=== PATIENT | female | born 1965 | race Caucasian/White ===

== ENCOUNTER 2017-06-25 17:56 | Inpatient (IN) | payer MEDICAID ==
[~2017-06-25] VITALS: Ht 160 cm; Wt 86.4 kg
[~2017-06-25 17:56] MED LIST: ALBU6.7H3 IH; ARIP5TAB4 PO; GABA-532 PO; HYDR-565 PO; MSC30T PO; OXYC-658 PO; SUMA50TA PO
[2017-06-25 18:44] LABS: INR 1.1 INR; PROTHROMBIN TIME 11.4 SECONDS (9.0-12.0)
[2017-06-25 18:46] LABS: ALANINE AMINOTRANSFERASE 55 U/L (12-78); ALBUMIN/GLOBULIN RATIO 1.1 (1.1-1.5); ALKALINE PHOSPHATASE 78 IU/L (46-116); ANION GAP 15 (8-16); ASPARTATE AMINO TRANSFERASE 53 U/L (10-37); BILIRUBIN,TOTAL 1.3 MG/DL (0.1-1.0); BLOOD UREA NITROGEN 26 MG/DL (7-18); BUN/CREATININE RATIO 24.5 (6.6-38.0); CALCIUM 8.9 MG/DL (8.5-10.1); CHLORIDE 96 MMOL/L (99-107); CREATININE 1.06 MG/DL (0.40-0.90); GLUCOSE 104 MG/DL (70-104); POTASSIUM 4.1 MMOL/L (3.5-5.1); SODIUM 135 MMOL/L (135-145); TOTAL CARBON DIOXIDE 24.5 MMOL/L (24-32); TOTAL PROTEIN 7.8 G/DL (6.4-8.2); eGFR 55 ML/MIN
[2017-06-25 18:50] LABS: BASOPHILS % (AUTO) 0.1 % (0-1); EOSINOPHILS # (AUTO) 0.5 X10'3 (0-0.9); EOSINOPHILS % (AUTO) 2.2 % (0-6); HEMATOCRIT 47.4 % (35.0-45.0); HEMOGLOBIN 16.5 g/dl (12.0-16.0); LYMPHOCYTES # (AUTO) 0.7 X10'3 (1.1-4.8); LYMPHOCYTES % (AUTO) 3.4 % (21-51); MEAN CORPUSCULAR HEMOGLOBIN 31.5 PG (27.0-31.0); MEAN CORPUSCULAR HGB CONC 34.8 % (33.0-36.5); MEAN CORPUSCULAR VOLUME 90.5 FL (78-98); MEAN PLATELET VOLUME 7.9 FL (7.4-10.4); MONOCYTES # (AUTO) 0.6 X10'3 (0-0.9); MONOCYTES % (AUTO) 2.8 % (2-12); NEUTROPHILS # (AUTO) 19.6 X10'3 (1.8-7.7); NEUTROPHILS % (AUTO) 91.5 % (42-75); PLATELET COUNT 201 X10'3 (140-440); RED BLOOD COUNT 5.23 X10'6 (4.20-5.60); RED CELL DISTRIBUTION WIDTH 14.2 % (11.5-14.5); WHITE BLOOD COUNT 21.4 X10'3 (4.5-11.0)
[2017-06-25 20:48] LABS: CLARITY,URINE CLEAR (Clear); COLOR,URINE YELLOW (Yellow); GLUCOSE, URINE NEGATIVE (Neg); KETONES,URINE TRACE mg/dl (Neg); LEUKOCYTE ESTERASE ,URINE NEGATIVE (Neg); NITRITES, URINE NEGATIVE (Neg); OCCULT BLOOD,URINE NEGATIVE (Neg); PH,URINE 5.5 (4.8-8.0); PROTEIN,URINE NEGATIVE (Neg); UROBILINOGEN,URINE 0.2 E.U/dL (0.2-1.0)
[2017-06-25 20:51] LABS: UA COLLECTION TYPE CLN CATCH MIDSTREAM
[2017-06-25] MEDS ORDERED: morphine 4 MG/ML inj SYRINge IV ONE ×4 (21:10→23:20)
[2017-06-25] MEDS ORDERED: ondansetron/PF 4mg/2ml inj IV ONE ×2 (21:10→23:20)
[2017-06-25] MEDS ORDERED: normal saline 1000ML IV soln IVB ONE (21:10)
[2017-06-25] MEDS ORDERED: piperacillin/tazo 3.375gm/50ml 50 ML IV ONE (21:10)
[2017-06-25] MEDS ORDERED: iohexol 300mg/ml 100ml inj. ONE (21:19)
[2017-06-25 21:31] LABS: URINE HCG NEGATIVE (NEG)
[2017-06-25 21:46] LABS: MAGNESIUM 1.3 MG/DL (1.5-2.4); TROPONIN I < 0.04 NG/ML (0.0-0.05)
[2017-06-25 22:02] LABS: LIPASE 3634 U/L (73-393)
[2017-06-25 22:09] LABS: URINE AMPHETAMINE SCREEN NEGATIVE (Neg); URINE BARBITUATE SCREEN NEGATIVE (Neg); URINE BENZODIAZEPINES SCREEN NEGATIVE (Neg); URINE CANNABINOID SCREEN NEGATIVE (Neg); URINE COCAINE SCREEN NEGATIVE (Neg); URINE METHADONE SCREEN NEGATIVE (Neg); URINE OPIATE SCREEN POSITIVE (Neg); URINE PHENCYCLIDINE SCREEN NEGATIVE (Neg)
[2017-06-25] MEDS ORDERED: ringers solution, lactated 1000ml IV soln IV ONE (23:20)
[2017-06-25 23:45] LABS: LACTATE DEHYDROGENASE 413 U/L (81-234)
[2017-06-26] MEDS ORDERED: HYDROmorphone 1 mg/ml syringe IV ONE ×2 (00:05→02:25)
[2017-06-26] MEDS ORDERED: morphine 4 MG/ML inj SYRINge IV ONE (00:05)
[2017-06-26] MEDS ORDERED: HYDROmorphone inj. 0.5 MG/0.5 ML DISP.SYRIN ONE ×2 (00:21→02:53)
[2017-06-26] MEDS ORDERED: magnesium 2GM in 50ml NS 50 ML IV PRN (00:30)
[2017-06-26] MEDS ORDERED: bisacodyl 10mg suppository rectal RC PRN (00:30)
[2017-06-26] MEDS ORDERED: magnesium 4gm in 100ml NS 100 ML IV PRN (00:30)
[2017-06-26] MEDS ORDERED: mag hydrox/Alum hydrox/simeth 30ml oral suspension PO PRN (00:30)
[2017-06-26] MEDS ORDERED: potassium Cl 40MEQ/NS 500ml 500 ML IV PRN ×2 (00:30)
[2017-06-26] MEDS ORDERED: HYDROmorphone inj. 0.5 MG/0.5 ML DISP.SYRIN IV PRN (00:30)
[2017-06-26] MEDS ORDERED: naloxone 0.4 mg/ml inj IV PRN (02:25)
[2017-06-26] MEDS ORDERED: CADD PCA waste documentation MC PRN (02:25)
[2017-06-26] MEDS: normal saline 1000ml 1,000 ML IV SCH ×7 (02:30→18:00)
[2017-06-26 03:00] VITALS: BP 145/72
[2017-06-26] MEDS ORDERED: piperacillin/tazo 3.375gm/50ml 50 ML IV ONE (03:21)
[2017-06-26] MEDS: HYDROmorphone/NS 1 mg/ml CADD 50 ML IV SCH ×11 (03:23→23:00)
[2017-06-26] MEDS: piperacillin/tazo 3.375gm/50ml 50 ML IV SCH ×4 (03:28→20:32)
[2017-06-26 06:27] LABS: ALANINE AMINOTRANSFERASE 37 U/L (12-78); ALBUMIN 3.2 G/DL (3.4-5.0); ALBUMIN/GLOBULIN RATIO 0.9 (1.1-1.5); ALKALINE PHOSPHATASE 66 IU/L (46-116); ANION GAP 11 (8-16); ASPARTATE AMINO TRANSFERASE 34 U/L (10-37); BILIRUBIN,TOTAL 1.6 MG/DL (0.1-1.0); BLOOD UREA NITROGEN 19 MG/DL (7-18); BUN/CREATININE RATIO 19.2 (6.6-38.0); CALCIUM 8.1 MG/DL (8.5-10.1); CHLORIDE 101 MMOL/L (99-107); CHOL/HDL RATIO 4.4 (0.00-4.99); CHOLESTEROL 92 MG/DL (0-200); CREATININE 0.99 MG/DL (0.40-0.90); GLUCOSE 105 MG/DL (70-104); HDL CHOLESTEROL 21 MG/DL (35-60); LDL CHOLESTEROL 29 MG/DL (50-100); POTASSIUM 3.6 MMOL/L (3.5-5.1); SODIUM 138 MMOL/L (135-145); TOTAL PROTEIN 6.7 G/DL (6.4-8.2); eGFR 59 ML/MIN
[2017-06-26 06:28] LABS: TRIGLYCERIDES 281 MG/DL (20-135)
[2017-06-26 06:32] LABS: LIPASE 2210 U/L (73-393)
[2017-06-26 06:45] LABS: BASOPHILS % (AUTO) 0 % (0-1); EOSINOPHILS # (AUTO) 0.2 X10'3 (0-0.9); EOSINOPHILS % (AUTO) 1.5 % (0-6); HEMATOCRIT 40.6 % (35.0-45.0); HEMOGLOBIN 14.1 g/dl (12.0-16.0); LYMPHOCYTES # (AUTO) 0.6 X10'3 (1.1-4.8); LYMPHOCYTES % (AUTO) 4.2 % (21-51); MEAN CORPUSCULAR HEMOGLOBIN 31.7 PG (27.0-31.0); MEAN CORPUSCULAR HGB CONC 34.9 % (33.0-36.5); MEAN PLATELET VOLUME 7.8 FL (7.4-10.4); MONOCYTES # (AUTO) 0.4 X10'3 (0-0.9); MONOCYTES % (AUTO) 2.4 % (2-12); NEUTROPHILS # (AUTO) 13.8 X10'3 (1.8-7.7); NEUTROPHILS % (AUTO) 91.9 % (42-75); PLATELET COUNT 128 X10'3 (140-440); RED BLOOD COUNT 4.46 X10'6 (4.20-5.60); RED CELL DISTRIBUTION WIDTH 13.6 % (11.5-14.5)
[2017-06-26 07:21] VITALS: BP 129/72
[2017-06-26] MEDS: K and/or MAG REPLACEMENT MC SCH (08:00)
[2017-06-26] MEDS: enoxaparin 40mg/0.4ml syringe SQ SCH (08:00)
[2017-06-26] MEDS: ondansetron/PF 4mg/2ml inj IV PRN ×2 (08:16→17:18)
[2017-06-26 13:44] VITALS: BP 112/71
[2017-06-26 18:40] VITALS: BP 125/79
[2017-06-27] VITALS: BP 116/83
[2017-06-27] MEDS: HYDROmorphone/NS 1 mg/ml CADD 50 ML IV SCH ×12 (01:00→23:00)
[2017-06-27] MEDS: piperacillin/tazo 3.375gm/50ml 50 ML IV SCH ×4 (01:27→20:21)
[2017-06-27 06:05] LABS: BASOPHILS % (AUTO) 0.2 % (0-1); EOSINOPHILS # (AUTO) 0.1 X10'3 (0-0.9); EOSINOPHILS % (AUTO) 1.3 % (0-6); HEMATOCRIT 36.9 % (35.0-45.0); LYMPHOCYTES # (AUTO) 0.8 X10'3 (1.1-4.8); LYMPHOCYTES % (AUTO) 8.2 % (21-51); MEAN CORPUSCULAR HEMOGLOBIN 31.9 PG (27.0-31.0); MEAN CORPUSCULAR HGB CONC 35.2 % (33.0-36.5); MEAN CORPUSCULAR VOLUME 90.5 FL (78-98); MEAN PLATELET VOLUME 7.8 FL (7.4-10.4); MONOCYTES # (AUTO) 0.4 X10'3 (0-0.9); MONOCYTES % (AUTO) 3.8 % (2-12); NEUTROPHILS # (AUTO) 8.5 X10'3 (1.8-7.7); NEUTROPHILS % (AUTO) 86.5 % (42-75); PLATELET COUNT 105 X10'3 (140-440); RED BLOOD COUNT 4.08 X10'6 (4.20-5.60); RED CELL DISTRIBUTION WIDTH 13.6 % (11.5-14.5); WHITE BLOOD COUNT 9.9 X10'3 (4.5-11.0)
[2017-06-27 06:23] LABS: ALANINE AMINOTRANSFERASE 27 U/L (12-78); ALBUMIN 2.9 G/DL (3.4-5.0); ALBUMIN/GLOBULIN RATIO 0.7 (1.1-1.5); ALKALINE PHOSPHATASE 66 IU/L (46-116); ANION GAP 8 (8-16); ASPARTATE AMINO TRANSFERASE 24 U/L (10-37); BILIRUBIN,TOTAL 0.8 MG/DL (0.1-1.0); BLOOD UREA NITROGEN 12 MG/DL (7-18); BUN/CREATININE RATIO 11.2 (6.6-38.0); CALCIUM 8.7 MG/DL (8.5-10.1); CHLORIDE 103 MMOL/L (99-107); CREATININE 1.07 MG/DL (0.40-0.90); GLUCOSE 85 MG/DL (70-104); LIPASE 671 U/L (73-393); MAGNESIUM 1.6 MG/DL (1.5-2.4); POTASSIUM 3.6 MMOL/L (3.5-5.1); SODIUM 139 MMOL/L (135-145); TOTAL CARBON DIOXIDE 27.8 MMOL/L (24-32); TOTAL PROTEIN 6.8 G/DL (6.4-8.2); eGFR 54 ML/MIN
[2017-06-27 07:38] VITALS: BP 134/86
[2017-06-27] MEDS: K and/or MAG REPLACEMENT MC SCH (08:00)
[2017-06-27] MEDS: enoxaparin 40mg/0.4ml syringe SQ SCH (08:00)
[2017-06-27] MEDS: normal saline 1000ml 1,000 ML IV SCH ×2 (10:26→18:30)
[2017-06-27] MEDS ORDERED: magnesium hydroxide 30ml (MOM) UD suspension PO PRN (12:55)
[2017-06-27] MEDS: docusate sod 100mg capsule PO SCH ×2 (13:16→20:21)
[2017-06-27] MEDS: aripiprazole 5mg tablet PO SCH (13:52)
[2017-06-27 18:40] VITALS: BP 131/86
[2017-06-27] MEDS: gabapentin 300mg capsule PO SCH (20:21)
[2017-06-28] VITALS: BP 149/97
[2017-06-28] MEDS: HYDROmorphone/NS 1 mg/ml CADD 50 ML IV SCH ×6 (01:00→11:00)
[2017-06-28] MEDS: piperacillin/tazo 3.375gm/50ml 50 ML IV SCH ×2 (01:42→07:11)
[2017-06-28] MEDS: normal saline 1000ml 1,000 ML IV SCH ×2 (05:02→16:26)
[2017-06-28 05:59] LABS: ALANINE AMINOTRANSFERASE 24 U/L (12-78); ALBUMIN 2.5 G/DL (3.4-5.0); ALBUMIN/GLOBULIN RATIO 0.7 (1.1-1.5); ALKALINE PHOSPHATASE 57 IU/L (46-116); ANION GAP 7 (8-16); ASPARTATE AMINO TRANSFERASE 19 U/L (10-37); BLOOD UREA NITROGEN 8 MG/DL (7-18); CALCIUM 8.6 MG/DL (8.5-10.1); CHLORIDE 102 MMOL/L (99-107); CREATININE 0.73 MG/DL (0.40-0.90); GLUCOSE 87 MG/DL (70-104); LIPASE 521 U/L (73-393); MAGNESIUM 1.6 MG/DL (1.5-2.4); POTASSIUM 3.3 MMOL/L (3.5-5.1); SODIUM 137 MMOL/L (135-145); TOTAL CARBON DIOXIDE 27.6 MMOL/L (24-32); TOTAL PROTEIN 6.2 G/DL (6.4-8.2); eGFR 84 ML/MIN
[2017-06-28 06:26] LABS: BASOPHILS % (AUTO) 0.3 % (0-1); EOSINOPHILS # (AUTO) 0.2 X10'3 (0-0.9); EOSINOPHILS % (AUTO) 2.6 % (0-6); HEMATOCRIT 32.1 % (35.0-45.0); HEMOGLOBIN 11.3 g/dl (12.0-16.0); LYMPHOCYTES # (AUTO) 0.9 X10'3 (1.1-4.8); LYMPHOCYTES % (AUTO) 12.3 % (21-51); MEAN CORPUSCULAR HEMOGLOBIN 32.1 PG (27.0-31.0); MEAN CORPUSCULAR HGB CONC 35.3 % (33.0-36.5); MEAN CORPUSCULAR VOLUME 91.1 FL (78-98); MEAN PLATELET VOLUME 7.6 FL (7.4-10.4); MONOCYTES # (AUTO) 0.4 X10'3 (0-0.9); NEUTROPHILS # (AUTO) 6.1 X10'3 (1.8-7.7); NEUTROPHILS % (AUTO) 79.8 % (42-75); PLATELET COUNT 104 X10'3 (140-440); RED BLOOD COUNT 3.52 X10'6 (4.20-5.60); RED CELL DISTRIBUTION WIDTH 12.7 % (11.5-14.5); WHITE BLOOD COUNT 7.6 X10'3 (4.5-11.0)
[2017-06-28] MEDS: gabapentin 300mg capsule PO SCH ×3 (07:11→14:09)
[2017-06-28] MEDS: docusate sod 100mg capsule PO SCH (07:11)
[2017-06-28] MEDS: aripiprazole 5mg tablet PO SCH (07:11)
[2017-06-28] MEDS ORDERED: LIDOcaine 1% 30ml vial 5 ML in potassium Cl 40MEQ/NS 500ml 500 ML IV PRN (07:45)
[2017-06-28] MEDS: enoxaparin 40mg/0.4ml syringe SQ SCH (08:00)
[2017-06-28] MEDS: K and/or MAG REPLACEMENT MC SCH (08:00)
[2017-06-28 11:22] VITALS: BP 126/76
[2017-06-28] MEDS ORDERED: HYDROcodone/acetaminophen 5mg/325mg tablet PO PRN (11:30)
[2017-06-28] MEDS ORDERED: LORazepam 1 MG tablet PO PRN (11:30)
[2017-06-28 12:38] VITALS: BP 119/79
[2017-06-28 14:54] VITALS: BP 126/76
[2017-06-30] MEDS ORDERED: methylnaltrexone br 12mg/0.6ml inj***SubQ only SQ SCH (08:00)
== END 2017-06-28 17:28 | disposition home or self-care (01) | DRG 282 ==
LOC: ER 17:56 → ED HOLD 06-26 00:26 → SUR 3N 06-26 01:56
PROVIDERS: ADMIT Family Medicine; ATTEND Family Medicine
DX: K85.90 Acute pancreatitis without necrosis or infection, unspecified (principal); N17.9 Acute kidney failure, unspecified; E83.42 Hypomagnesemia; B19.20 Unspecified viral hepatitis C without hepatic coma; R74.0 Nonspecific elevation of levels of transaminase and lactic acid dehydrogenase [LDH]; F41.1 Generalized anxiety disorder; E66.9 Obesity, unspecified; E87.6 Hypokalemia; G89.29 Other chronic pain; K59.00 Constipation, unspecified; Z87.891 Personal history of nicotine dependence; Z68.33 Body mass index [BMI] 33.0-33.9, adult; Z79.899 Other long term (current) drug therapy; Z72.89 Other problems related to lifestyle
CPT/HCPCS: 36415; 71045; 74176; 76700; 80053; 80061; 80305; 81003; 81025; 83605; 83615; 83690; 83735; 84145; 84484; 85025; 85610; 87040; 87070; 96365; 96375; 96376; 99285; J1170; J1650; J2270; J2405; J2543; J3480; J3490; J7030; Q9967

== ENCOUNTER 2020-09-11 23:54 | Inpatient (IN) | payer MEDICAID ==
[~2020-09-11] VITALS: Ht 165.1 cm; Wt 54.5 kg
[~2020-09-11 23:54] MED LIST changes: +ARIP5TAB14 PO; -ARIP5TAB4 PO; -HYDR-565 PO; -MSC30T PO; -OXYC-658 PO; -SUMA50TA PO
[2020-09-12] MEDS ORDERED: NO HOME MEDS (00:11)
[2020-09-12 00:32] LABS: COLOR,URINE YELLOW (Yellow); GLUCOSE, URINE NEGATIVE (Neg); KETONES,URINE 40 mg/dl (Neg); LEUKOCYTE ESTERASE ,URINE NEGATIVE (Neg); NITRITES, URINE NEGATIVE (Neg); OCCULT BLOOD,URINE TRACE-INTACT (Neg); PH,URINE 5.5 (4.8-8.0); PROTEIN,URINE 100 mg/dl (Neg)
[2020-09-12 00:38] LABS: UA COLLECTION TYPE CLN CATCH MIDSTREAM
[2020-09-12 00:39] LABS: BACTERIA,URINE FEW /HPF (Neg); CLARITY,URINE SLIGHTLY CLOUDY (Clear); MUCUS STRANDS MANY /LPF (Neg); RBC,URINE 0-2 /HPF (0-2); SQUAMOUS EPITHELIAL CELL,UR FEW /LPF (FEW); WBC,URINE 0-4 /HPF (0-4)
[2020-09-12] MEDS ORDERED: normal saline 1000ML IV soln IVB ONE (00:50)
[2020-09-12] MEDS ORDERED: morphine 4 MG/ML inj SYRINge IV PRN (00:50)
[2020-09-12 01:20] LABS: BASOPHILS % (AUTO) 0.5 % (0-1); EOSINOPHILS % (AUTO) 0.4 % (0-6); HEMATOCRIT 36.5 % (35.0-45.0); HEMOGLOBIN 12.7 g/dl (12.0-16.0); LYMPHOCYTES # (AUTO) 0.6 X10'3 (1.1-4.8); LYMPHOCYTES % (AUTO) 11.6 % (21-51); MEAN CORPUSCULAR HEMOGLOBIN 37.3 PG (27.0-31.0); MEAN CORPUSCULAR HGB CONC 34.8 g/dL (33.0-36.5); MEAN CORPUSCULAR VOLUME 107.1 FL (78-98); MEAN PLATELET VOLUME 8.2 FL (7.4-10.4); MONOCYTES # (AUTO) 0.5 X10'3 (0-0.9); MONOCYTES % (AUTO) 10.1 % (2-12); NEUTROPHILS % (AUTO) 77.4 % (42-75); PLATELET COUNT 64 X10'3 (140-440); RED CELL DISTRIBUTION WIDTH 27.2 % (11.5-14.5); WHITE BLOOD COUNT 5.2 X10'3 (4.5-11.0)
[2020-09-12 01:35] LABS: PLATELET ESTIMATE DECREASED
[2020-09-12 01:36] LABS: ANISOCYTOSIS 3+
[2020-09-12 01:51] LABS: ALANINE AMINOTRANSFERASE 26 U/L (12-78); ALBUMIN/GLOBULIN RATIO 1.1 (1.1-1.5); ALKALINE PHOSPHATASE 72 IU/L (46-116); ANION GAP 14 (8-16); ASPARTATE AMINO TRANSFERASE 38 U/L (10-37); BLOOD UREA NITROGEN 11 MG/DL (7-18); BUN/CREATININE RATIO 11.2 (6.6-38.0); CALCIUM 9.4 MG/DL (8.5-10.1); CHLORIDE 95 MMOL/L (99-107); CREATININE 0.98 MG/DL (0.40-0.90); GLUCOSE 145 MG/DL (70-104); MAGNESIUM 1.1 MG/DL (1.5-2.4); SODIUM 134 MMOL/L (135-145); TOTAL CARBON DIOXIDE 24.6 MMOL/L (24-32); TOTAL PROTEIN 7.5 G/DL (6.4-8.2); eGFR 59 ML/MIN
[2020-09-12] MEDS ORDERED: potassium Cl 10 mEq/100mL bag IV ONE (02:05)
[2020-09-12] MEDS ORDERED: morphine 2 MG/ML inj. syringe IV PRN (03:30)
[2020-09-12] MEDS ORDERED: HYDROcodone/acetaminophen 10/325mg tab PO PRN (03:30)
[2020-09-12] MEDS ORDERED: HYDROcodone/acetaminophen 5mg/325mg tablet PO PRN (03:30)
[2020-09-12] MEDS ORDERED: magnesium hydroxide 30ml (MOM) UD suspension PO PRN (03:30)
[2020-09-12] MEDS ORDERED: acetaminophen 325mg tablet PO PRN (03:30)
[2020-09-12] MEDS ORDERED: mag hydrox/Alum hydrox/simeth 30ml oral suspension PO PRN (03:30)
[2020-09-12] MEDS ORDERED: potassium Cl 40MEQ/1/2NS 520ml 520 ML IV PRN ×2 (03:30)
[2020-09-12] MEDS ORDERED: potassium Cl 20 mEq SR tablet PO PRN (03:30)
[2020-09-12] MEDS ORDERED: ondansetron/PF 4mg/2ml inj IV PRN (03:30)
[2020-09-12] MEDS ORDERED: magnesium 4gm in 100ml NS 100 ML IV PRN (04:25)
--- NOTE | 2020-09-12 04:25 | NUR ---
Patient in room ED 10. I have received report from Daniel FERNANDES and had the opportunity to ask questions and assume patient care.
[2020-09-12] MEDS: morphine 2 MG/ML inj. syringe IV PRN ×2 (04:26→19:23)
[2020-09-12 04:45] VITALS: BP 140/91
[2020-09-12] MEDS: potassium Cl 20 mEq SR tablet PO PRN ×3 (04:51→16:55)
[2020-09-12] MEDS: magnesium Cl slow-release 64mg tablet PO PRN ×3 (04:51→21:44)
[2020-09-12] MEDS: LORazepam 2 mg/ml vial IV PRN ×2 (04:52→11:29)
--- NOTE | 2020-09-12 06:12 | NUR ---
Patient in room ORTHO 4020. I have received report from Flor FERNANDES and had the opportunity to ask questions and assume patient care.
--- NOTE | 2020-09-12 06:12 | NUR ---
Problems reprioritized. Patient report given, questions answered & plan of care reviewed with Jennifer FERNANDES.
[2020-09-12] MEDS: K and/or MAG REPLACEMENT MC SCH ×2 (08:00→19:26)
[2020-09-12] MEDS: heparin, porcine 5000 units/ml vial SQ SCH ×2 (08:00→19:28)
[2020-09-12 10:19] VITALS: BP 114/83
--- NOTE | 2020-09-12 11:25 | NUR ---
PAGER ID: [phone] MESSAGE: [id number] Raheem, not on any IV fluids, can we get some for her please Mary Lou [phone]
[2020-09-12] MEDS ORDERED: Potassium Cl inj 20 MEQ in normal saline 1000ml 990 ML IV SCH (11:35)
[2020-09-12] MEDS ORDERED: PERFLUTREN PROTEIN-A MICROSPHR (Optison) 0.22 MG/ML 3ML VIAL IV ONE (12:00)
[2020-09-12 18:00] VITALS: BP 127/87
--- NOTE | 2020-09-12 18:15 | NUR ---
Patient in room ORTHO 4020. I have received report from DOM Rodriguez and had the opportunity to ask questions and assume patient care.
--- NOTE | 2020-09-12 18:21 | NUR ---
Problems reprioritized. Patient report given, questions answered & plan of care reviewed with Sienna FERNANDES.
[2020-09-12 20:00] VITALS: BP_SYST 125; BP_SYST 128; BP_SYST 130; BP_DIAS 81; BP_DIAS 82
[2020-09-12 20:52] LABS: MAGNESIUM 1.2 MG/DL (1.5-2.4); POTASSIUM 4.5 MMOL/L (3.5-5.1)
[2020-09-12] MEDS ORDERED: potassium Cl 20mEq in NS 1,000 ML IV SCH (21:10)
[2020-09-12 22:00] VITALS: BP 128/82
[2020-09-13] MEDS: morphine 2 MG/ML inj. syringe IV PRN ×2 (00:15→05:19)
[2020-09-13] MEDS: normal saline 1000ml 1,000 ML IV SCH ×2 (00:38→10:30)
[2020-09-13 06:00] VITALS: BP 148/89
--- NOTE | 2020-09-13 06:42 | NUR ---
Problems reprioritized. Patient report given, questions answered & plan of care reviewed with DOM Chambers.
[2020-09-13 06:43] LABS: BASOPHILS # (AUTO) 0.1 X10'3 (0-0.2); BASOPHILS % (AUTO) 1.7 % (0-1); EOSINOPHILS # (AUTO) 0.1 X10'3 (0-0.9); HEMATOCRIT 37.6 % (35.0-45.0); HEMOGLOBIN 12.7 g/dl (12.0-16.0); LYMPHOCYTES # (AUTO) 1.1 X10'3 (1.1-4.8); MEAN CORPUSCULAR HEMOGLOBIN 36.8 PG (27.0-31.0); MEAN CORPUSCULAR HGB CONC 33.8 g/dL (33.0-36.5); MEAN CORPUSCULAR VOLUME 108.9 FL (78-98); MEAN PLATELET VOLUME 8.3 FL (7.4-10.4); MONOCYTES # (AUTO) 0.4 X10'3 (0-0.9); MONOCYTES % (AUTO) 10.9 % (2-12); NEUTROPHILS # (AUTO) 2.1 X10'3 (1.8-7.7); NEUTROPHILS % (AUTO) 54.4 % (42-75); PLATELET COUNT 72 X10'3 (140-440); RED BLOOD COUNT 3.46 X10'6 (4.20-5.60); RED CELL DISTRIBUTION WIDTH 26.7 % (11.5-14.5); WHITE BLOOD COUNT 3.8 X10'3 (4.5-11.0)
--- NOTE | 2020-09-13 06:50 | NUR ---
Patient in room ORTHO 4020B. I have received report from DOM MONTALVO and had the opportunity to ask questions and assume patient care.
[2020-09-13 07:06] LABS: ALANINE AMINOTRANSFERASE 23 U/L (12-78); ALBUMIN 3.6 G/DL (3.4-5.0); ALBUMIN/GLOBULIN RATIO 1.1 (1.1-1.5); ALKALINE PHOSPHATASE 56 IU/L (46-116); ANION GAP 7 (8-16); ASPARTATE AMINO TRANSFERASE 27 U/L (10-37); BILIRUBIN,TOTAL 0.5 MG/DL (0.1-1.0); BLOOD UREA NITROGEN 5 MG/DL (7-18); BUN/CREATININE RATIO 8.6 (6.6-38.0); CALCIUM 8.8 MG/DL (8.5-10.1); CHLORIDE 106 MMOL/L (99-107); CREATININE 0.58 MG/DL (0.40-0.90); GLUCOSE 102 MG/DL (70-104); POTASSIUM 4.6 MMOL/L (3.5-5.1); SODIUM 139 MMOL/L (135-145); TOTAL CARBON DIOXIDE 25.7 MMOL/L (24-32); eGFR > 90 ML/MIN
[2020-09-13 08:00] VITALS: BP_SYST 138; BP_SYST 140; BP_SYST 152; BP_DIAS 101; BP_DIAS 102; BP_DIAS 99
[2020-09-13] MEDS: heparin, porcine 5000 units/ml vial SQ SCH (08:00)
[2020-09-13] MEDS: K and/or MAG REPLACEMENT MC SCH (08:00)
[2020-09-13 10:00] VITALS: BP 140/88
--- NOTE | 2020-09-13 11:48 | NUR ---
Malnutrition Consult: Pt admit w/ acute syncope and s/p EEG r/t AMS per EMR. Pt MCV 108.9 w/ hx etoh; RD d/w RN regarding etoh protocol if MD agreeable. RN reports pt pending MRI at this time and if negative will be discharged per MD this AM. Pt has normal strength, no edema/wounds, PO 100% regular diet, and does not meet malnutrition criteria at this time. Addendum: 09/13/20 at [address] Amended: Links added.
[2020-09-13] MEDS ORDERED: ACAM333T8 PO (14:21)
--- NOTE | 2020-09-13 14:53 | NUR ---
D/C INSTRUCTIONS GIVEN, QUESTIONS ANSWERED. BELONGINGS GATHERED BY PT AND SENT WITH PT. IV D/C'D, CANNULA INTACT, NO COMPLICATIONS. D/C'D PT IN STABLE CONDITION TO HOME IN PRIVATE VEHICLE ACCOMPANIED BY BOYFRIEND. PT LEFT FLOOR AT 1452
[2020-09-14] MEDS ORDERED: LORazepam 1 MG tablet PO PRN (03:55)
[2020-09-16] MEDS ORDERED: LORazepam 1 MG tablet PO PRN (03:55)
== END 2020-09-13 14:50 | disposition home or self-care (01) | DRG 426 ==
LOC: ER 23:55 → ED HOLD 09-12 03:30 → ORTHO 4S 09-12 04:34
PROVIDERS: ADMIT Internal Medicine; ATTEND Family Medicine
PROC: 4A00X4Z Measurement of Central Nervous Electrical Activity, External Approach (ICD-10-PCS; principal; 2020-09-12)
DX: E87.1 Hypo-osmolality and hyponatremia (principal); K86.1 Other chronic pancreatitis; E87.6 Hypokalemia; F10.10 Alcohol abuse, uncomplicated; G89.29 Other chronic pain; J45.909 Unspecified asthma, uncomplicated; B18.2 Chronic viral hepatitis C
CPT/HCPCS: 36415; 70450; 70551; 71045; 80053; 81001; 82140; 82948; 83605; 83735; 83880; 84132; 84145; 84484; 85008; 85025; 87040; 87081; 93306; 95816; 97110; 97116; 97162; 99285; G0378; J2060; J2270; J3480; J7030

== ENCOUNTER → 2023-10-01 | Emergency (ER) | payer MEDICAID ==
[~2023-10-01] VITALS: Ht 162.6 cm; Wt 68.2 kg
[2023-10-01 19:10] VITALS: BP 121/71; PULSE 92; RESP 16; TEMP 98; O2SAT 94
[2023-10-01 19:42] LABS: BASOPHILS # (AUTO) 0.1 X10'3 (0-0.2); EOSINOPHILS # (AUTO) 0.1 X10'3 (0-0.9); EOSINOPHILS % (AUTO) 3.3 % (0-6); HEMATOCRIT 41.5 % (35.0-45.0); HEMOGLOBIN 13.8 g/dl (12.0-16.0); LYMPHOCYTES # (AUTO) 1.5 X10'3 (1.1-4.8); LYMPHOCYTES % (AUTO) 39.1 % (21-51); MEAN CORPUSCULAR HEMOGLOBIN 34.3 PG (27.0-31.0); MEAN CORPUSCULAR HGB CONC 33.3 g/dL (33.0-36.5); MEAN CORPUSCULAR VOLUME 103.1 FL (78-98); MEAN PLATELET VOLUME 7.2 FL (7.4-10.4); MONOCYTES # (AUTO) 0.4 X10'3 (0-0.9); NEUTROPHILS # (AUTO) 1.8 X10'3 (1.8-7.7); NEUTROPHILS % (AUTO) 45.6 % (42-75); PLATELET COUNT 212 X10'3 (140-440); RED BLOOD COUNT 4.02 X10'6 (4.20-5.60); RED CELL DISTRIBUTION WIDTH 16.4 % (11.5-14.5); WHITE BLOOD COUNT 3.9 X10'3 (4.5-11.0)
[2023-10-01 19:55] LABS: APTT 24 SECONDS (22-32); PROTHROMBIN TIME 10.3 SECONDS (9.0-12.0)
[2023-10-01 19:57] LABS: ALANINE AMINOTRANSFERASE 33 U/L (12-78); ALBUMIN 3.4 G/DL (3.4-5.0); ALBUMIN/GLOBULIN RATIO 0.9 (1.1-1.5); ALKALINE PHOSPHATASE 61 IU/L (46-116); ANION GAP 10 (8-16); ASPARTATE AMINO TRANSFERASE 41 U/L (10-37); BILIRUBIN,TOTAL 0.2 MG/DL (0.1-1.0); BLOOD UREA NITROGEN 12 MG/DL (7-18); BUN/CREATININE RATIO 19.4 (10.0-20.0); CALCIUM 8.9 MG/DL (8.5-10.1); CHLORIDE 106 MMOL/L (99-107); CREATININE 0.62 MG/DL (0.40-0.90); GLUCOSE 97 MG/DL (70-104); POTASSIUM 4.1 MMOL/L (3.5-5.1); SODIUM 142 MMOL/L (135-145); TOTAL CARBON DIOXIDE 25.8 MMOL/L (24-32); TOTAL PROTEIN 7.3 G/DL (6.4-8.2); eCRCL 87 ML/MIN; eGFR > 90 ML/MIN
[2023-10-01 20:02] LABS: ETHANOL 451 MG/DL (<10)
== END | disposition left against medical advice (07) ==
LOC: ER 19:07
DX: S00.12XA Contusion of left eyelid and periocular area, initial encounter (principal); F10.129 Alcohol abuse with intoxication, unspecified; Z98.890 Other specified postprocedural states; X58.XXXA Exposure to other specified factors, initial encounter; Y93.89 Activity, other specified; Y92.89 Other specified places as the place of occurrence of the external cause; Y99.8 Other external cause status
CPT/HCPCS: 36415; 70450; 70486; 72125; 80053; 80320; 85025; 85610; 85730; 99284